=== PATIENT | male | born 1985 | race Two or more races ===

== ENCOUNTER 2017-01-12 16:37 | Emergency (ER) | payer MEDICAID, OTHER ==
--- NOTE | 2017-01-12 16:56 | ER Document Report ---
ED Medical Screen (RME) - General Stated Complaint: KNEE PAIN Notes: 31 yo male c/o bilat knee pain. chronic knee pain. ACL injury in . no recent injury. TRAVEL OUTSIDE OF THE [place] IN LAST 30 DAYS: No - Related Data Allergies/Adverse Reactions: No Known Allergies Allergy (Unverified 02/06/15 19:58) Past Medical History Musculoskeltal Medical History: Reports Hx Arthritis, Reports Hx Musculoskeletal Deformity, Reports Hx Musculoskeletal Trauma Past Surgical History: Reports: Hx Orthopedic Surgery - torn ACL repair - Immunizations Immunizations up to date: Yes Hx Diphtheria, Pertussis, Tetanus Vaccination: Yes
--- NOTE | 2017-01-12 21:04 | ER Document Report ---
ED Extremity Problem, Lower - General Chief Complaint: Knee Pain Stated Complaint: KNEE PAIN Mode of Arrival: Ambulatory Information source: Patient Notes: 31-year-old male presents to the emergency department complaining of bilateral knee pain. Patient reports history of chronic knee pain due to previous injuries multiple years ago and previous right knee surgery after ligament injury. Reports pain is worse after prolonged activity or standing. Denies swelling, redness, warmth, numbness, tingling, or color changes. TRAVEL OUTSIDE OF THE [place] IN LAST 30 DAYS: No - HPI Patient complains to provider of: Pain Location: Knee Onset/Duration: Intermittent Quality of pain: Achy Severity: Moderate Pain Level: 3 Recent injury: No Exacerbated by: Movement, Walking Relieved by: Ice, Rest - Related Data Allergies/Adverse Reactions: No Known Allergies Allergy (Verified 01/12/17 16:54) Past Medical History - General Information source: Patient - Social History Smoking Status: Current Every Day Smoker Chew tobacco use (# tins/day): No Frequency of alcohol use: Occasional Drug Abuse: None Lives with: Family Family History: Arthritis, CAD, CVA, DM, Hyperlipidemia, Hypertension Patient has suicidal ideation: No Patient has homicidal ideation: No Renal/ Medical History: Denies: Hx Peritoneal Dialysis Musculoskeltal Medical History: Reports Hx Arthritis, Reports Hx Musculoskeletal Deformity, Reports Hx Musculoskeletal Trauma Past Surgical History: Reports: Hx Orthopedic Surgery - torn ACL repair - Immunizations Immunizations up to date: Yes Hx Diphtheria, Pertussis, Tetanus Vaccination: Yes Review of Systems - Review of Systems Constitutional: No symptoms reported EENT: No symptoms reported Cardiovascular: No symptoms reported Respiratory: No symptoms reported Gastrointestinal: No symptoms reported Genitourinary: No symptoms reported Male Genitourinary: No symptoms reported Musculoskeletal: See HPI Skin: No symptoms reported Hematologic/Lymphatic: No symptoms reported Neurological/Psychological: No symptoms reported -: Yes All other systems reviewed and negative Physical Exam - Vital signs Vitals: Temp Pulse Resp BP Pulse Ox 97.8 F 89 18 128/76 H 96 01/12/17 16:48 01/12/17 16:48 01/12/17 16:48 01/12/17 16:48 01/12/17 16:48 - General General appearance: Appears well, Alert In distress: None - HEENT Head: Normocephalic, Atraumatic Eyes: Normal - Respiratory Respiratory status: No respiratory distress Chest status: Nontender Breath sounds: Normal Chest palpation: Normal - Cardiovascular Rhythm: Regular Pulses: Normal: Radial, Posterior tibial, Dorsalis pedis Normal capillary refill: Yes - Extremities General upper extremity: Normal inspection, Nontender, Normal color, Normal ROM , Normal strength, Normal temperature. No: Tender, Edema General lower extremity: Normal inspection, Nontender, Normal color, Normal ROM , Normal strength, Normal temperature, Normal weight bearing. No: Tender, Edema , Rigoberto's sign Knee: Normal, Other - Old well-healed midline anterior surgical scar to right knee. No swelling, erythema, or warmth. Motor and neurovascular function intact.. No: Tender, Deformity, Dislocation, Pain with ROM Course - Re-evaluation Re-evalutation: 01/12/17 21:51 Patient hemodynamically stable, in no distress. Physical exam unremarkable with no suggestion of acute injury, or emergent infectious, inflammatory, or vascular etiology for the pain. Pt appears stable for discharge and agrees with home care, follow-up with PCP and orthopedics, and ED return precautions. - Vital Signs Vital signs: Temp Pulse Resp BP Pulse Ox 98.4 F 86 20 110/59 L 98 01/12/17 21:28 01/12/17 21:28 01/12/17 21:28 01/12/17 21:28 01/12/17 21:28 Discharge - Discharge Clinical Impression: Chronic knee pain Qualifiers: Laterality: bilateral Qualified Code(s): M25.561 - Pain in right knee Condition: Stable Disposition: HOME, SELF-CARE Instructions: Knee Exercise Program ([facility]), Anti-Inflammatory Medication ([facility]), Ice Packs ([facility]), Chronic Pain Control ([facility]) Additional Instructions: Follow-up with your primary care provider and orthopedics as discussed. Return to the emergency department for any worsening symptoms or concerns. Prescriptions: Naproxen 500 mg PO BIDP PRN #10 tablet PRN Reason: Forms: Return to Work Referrals: CASSIE BENNETT MD [ACTIVE STAFF] - Follow up in 3-5 days
[2017-01-12 21:29] VITALS: BP 110/59
== END 2017-01-12 21:24 | disposition home or self-care (01) ==
LOC: ER 16:37
DX: G89.29 Other chronic pain (principal); M25.561 Pain in right knee; M25.562 Pain in left knee
CPT/HCPCS: 99283

== ENCOUNTER 2017-10-04 06:07 | Emergency (ER) | payer SELFPAY ==
[2017-10-04] MEDS ORDERED: ASPIRIN 81 MG TABLET, CHEWABLE PO ONE (06:30)
--- NOTE | 2017-10-04 06:52 | ER Document Report ---
ED Blood Pressure Problem - General Mode of Arrival: Ambulatory Information source: Patient TRAVEL OUTSIDE OF THE [place] IN LAST 30 DAYS: No <DAMION HAYES - Last Filed: 10/04/17 07:32> <GRECIA HEREDIA - Last Filed: 10/04/17 08:31> - General Chief Complaint: Blood Pressure Problem Stated Complaint: BLOOD PRESSURE PROBLEM Time Seen by Provider: 10/04/17 06:28 Notes: Patient is a 32 year old male that presents to the emergency department today with complaints of a "taste of blood in his mouth". Patient states that he feels like he has been "hanging upside down for too long". Patient states that he usually notices this sensation immediately after standing. 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 Patient states he has a headache but denies any chest pain. (DAMION HAYES) - Related Data Allergies/Adverse Reactions: No Known Allergies Allergy (Verified 01/12/17 16:54) Home Medications: Current Home Medications No Home Medications 10/04/17 [History] Past Medical History - General Information source: Patient - Social History Smoking Status: Current Some Day Smoker - "quit two days ago" Cigarette use (# per day): Yes Chew tobacco use (# tins/day): No Frequency of alcohol use: None Drug Abuse: None Lives with: Family Family History: Arthritis, CAD, CVA, DM, Hyperlipidemia, Hypertension Patient has suicidal ideation: No Patient has homicidal ideation: No Musculoskeltal Medical History: Reports Hx Arthritis, Reports Hx Musculoskeletal Deformity, Reports Hx Musculoskeletal Trauma Past Surgical History: Reports: Hx Orthopedic Surgery - torn ACL repair - Immunizations Immunizations up to date: Yes Hx Diphtheria, Pertussis, Tetanus Vaccination: Yes <DAMION HAYES - Last Filed: 10/04/17 07:32> Review of Systems - Review of Systems Constitutional: No symptoms reported EENT: No symptoms reported Cardiovascular: See HPI, Dizziness, Lightheaded. denies: Chest pain Respiratory: No symptoms reported Gastrointestinal: No symptoms reported Genitourinary: No symptoms reported Male Genitourinary: No symptoms reported Musculoskeletal: No symptoms reported Skin: No symptoms reported Hematologic/Lymphatic: No symptoms reported Neurological/Psychological: See HPI, Headaches -: Yes All other systems reviewed and negative <DAMION HAYES - Last Filed: 10/04/17 07:32> Physical Exam <DAMION HAYES - Last Filed: 10/04/17 07:32> - Vital signs Interpretation: Normal - General General appearance: Appears well, Alert - HEENT Head: Normocephalic, Atraumatic Eyes: Normal Pupils: PERRL - Respiratory Respiratory status: No respiratory distress Chest status: Nontender Breath sounds: Normal Chest palpation: Normal - Cardiovascular Rhythm: Regular Heart sounds: Normal auscultation Murmur: No - Abdominal Inspection: Normal Distension: No distension Bowel sounds: Normal Tenderness: Nontender Organomegaly: No organomegaly - Back Back: Normal, Nontender - Extremities General upper extremity: Normal inspection, Nontender, Normal color, Normal ROM , Normal temperature General lower extremity: Normal inspection, Nontender, Normal color, Normal ROM , Normal temperature, Normal weight bearing. No: Rigoberto's sign - Neurological Neuro grossly intact: Yes Cognition: Normal Orientation: AAOx4 [place] Coma Scale Eye Opening: Spontaneous [place] Coma Scale Verbal: Oriented [place] Coma Scale Motor: Obeys Commands Melissa Coma Scale Total: 15 Speech: Normal Motor strength normal: LUE, RUE, LLE, RLE Sensory: Normal - Psychological Associated symptoms: Normal affect, Normal mood - Skin Skin Temperature: Warm Skin Moisture: Dry Skin Color: Normal <GRECIA HEREDIA - Last Filed: 10/04/17 08:31> - Vital signs Vitals: Temp Pulse Resp BP Pulse Ox 98.2 F 92 20 147/85 H 97 10/04/17 06:10 10/04/17 06:10 10/04/17 06:10 10/04/17 06:10 10/04/17 06:10 - Notes Notes: Physical Exam: General: Alert, appears well. HEENT: Normocephalic. Atraumatic. PERRL. Extraocular movements intact. Oropharynx clear. Neck: Supple. Non-tender. Respiratory: No respiratory distress. Clear and equal breath sounds bilaterally. Cardiovascular: Regular rate and rhythm. Abdominal: Normal Inspection. Non-tender. No distension. Normal Bowel Sounds. Back: Non-tender. No deformity or step off. Extremities: Moves all four extremities. Upper extremities: Normal inspection. Normal ROM. Lower extremities: Normal inspection. No edema. Normal ROM. Neurological: Normal cognition. AAOx4. Normal speech. Psychological: Normal affect. Normal Mood. Skin: Warm. Dry. Normal color. (DAMION HAYES) Course - Laboratory Result Diagrams: 10/04/17 06:45 10/04/17 06:45 <DAMION HAYES - Last Filed: 10/04/17 07:32> - Laboratory Result Diagrams: 10/04/17 06:45 10/04/17 06:45 <GRECIA HEREDIA - Last Filed: 10/04/17 08:31> - Re-evaluation Re-evalutation: 10/04/17 08:28 Patient is a 32-year-old male who comes in complaining of head rashes. Patient states that when he stands up he feels like the blood rushes and he was moving heavy things and then felt the same way. Patient feels better after fluids. No acute finding on blood work. No acute findings on chest x-ray. Troponin is negative. No acute changes on EKG. Patient is to stay hydrated. Stable for discharge. Follow-up with PMD as needed. (GRECIA HEREDIA) - Vital Signs Vital signs: Temp Pulse Resp BP Pulse Ox 98.2 F 92 21 H 121/87 H 95 10/04/17 06:10 10/04/17 06:10 10/04/17 07:01 10/04/17 07:01 10/04/17 07:01 - Laboratory Laboratory results interpreted by me: 10/04/17 10/04/17 06:45 06:45 Eosinophils % 7.0 H Absolute Eosinophils 0.7 H ALT 80 H Alkaline Phosphatase 130 H Creatine Kinase 240 H Discharge <DAMION HAYES - Last Filed: 10/04/17 07:32> <GRECIA HEREDIA - Last Filed: 10/04/17 08:31> - Discharge Clinical Impression: Orthostatic dizziness Condition: Stable Disposition: HOME, SELF-CARE Instructions: Orthostatic Hypotension ([facility]), Dehydration ([facility]) Additional Instructions: Please make sure you are staying hydrated. Please follow-up with your doctor within the next week. Forms: Return to Work Scribe Attestation: 10/04/17 08:31 I personally performed the services described in the documentation, reviewed and edited the documentation which was dictated to the scribe in my presence, and it accurately records my words and actions. (GRECIA HEREDIA) Scribe Documentation - Scribe Written by Kourtney:: Kourtney Foley, 10/04/2017 0732 acting as scribe for :: Lyudmila <DAMION HAYES - Last Filed: 10/04/17 07:32>
[2017-10-04 06:54] LABS: ABSOLUTE BASOPHILS # (AUTO) 0.1 10^3/uL (0.0-0.2); ABSOLUTE EOSINOPHILS # (AUTO) 0.7 10^3/uL (0.0-0.6); ABSOLUTE LYMPHOCYTES (AUTO) 2.2 10^3/uL (0.5-4.7); ABSOLUTE MONOCYTES (AUTO) 0.6 10^3/uL (0.1-1.4); ABSOLUTE NEUT (AUTO) 5.9 10^3/uL (1.7-8.2); BASOPHILS % (AUTO) 0.5 % (0-2); HEMATOCRIT 42.8 % (37.9-51.0); HEMOGLOBIN 15.2 g/dL (13.5-17.0); HGB HCT DIFFERENCE 2.8; LYMPHOCYTES % (AUTO) 23.4 % (13-45); MEAN CORPUSCULAR HEMOGLOBIN 31.8 pg (27.0-33.4); MEAN CORPUSCULAR HGB CONC 35.5 g/dL (32.0-36.0); MEAN CORPUSCULAR VOLUME 90 fl (80-97); MONOCYTES % (AUTO) 6.8 % (3-13); RED BLOOD COUNT 4.77 10^6/uL (4.35-5.55); RED CELL DISTRIBUTION WIDTH 12.5 % (11.5-14.0); SEGMENTED NEUTROPHILS % (AUTO) 62.3 % (42-78); WHITE BLOOD COUNT 9.5 10^3/uL (4.0-10.5)
[2017-10-04] MEDS ORDERED: NORMAL SALINE 1000 ML 1,000 ML IV ONE (06:57)
--- NOTE | 2017-10-04 07:20 | RADIOLOGY REPORT (SQ) ---
EXAM DESCRIPTION: CHEST SINGLE VIEW CLINICAL HISTORY: CP COMPARISON: 02/06/2015 FINDINGS: Single frontal view of the chest. The cardiomediastinal silhouette has normal size and contour. No consolidation, pneumothorax, or pleural effusion. No displaced rib fractures identified. Leads overlie the chest. Upper abdominal soft tissues are unremarkable. IMPRESSION: 1. No acute pulmonary process identified.
[2017-10-04 07:23] LABS: ALANINE AMINOTRANSFERASE 80 U/L (21-72); ALBUMIN 4.2 g/dL (3.5-5.0); ALKALINE PHOSPHATASE 130 U/L (38-126); ANION GAP 11 (5-19); ASPARTATE AMINO TRANSFERASE 42 U/L (17-59); BILIRUBIN,DIRECT 0.4 mg/dL (0.0-0.4); BILIRUBIN,TOTAL 0.7 mg/dL (0.2-1.3); BLOOD UREA NITROGEN 12 mg/dL (7-20); CALCIUM 9.5 mg/dL (8.4-10.2); CARBON DIOXIDE 24 mmol/L (22-30); CHLORIDE 106 mmol/L (98-107); CREATINE KINASE 240 U/L (55-170); CREATININE RESULT 0.88 mg/dL (0.52-1.25); GLUCOSE 101 mg/dL (75-110); POTASSIUM 4.2 mmol/L (3.6-5.0); SODIUM 141.4 mmol/L (137-145); TOTAL PROTEIN 6.8 g/dL (6.3-8.2)
[2017-10-04 07:34] LABS: CREATINE KINASE MB 2.51 ng/mL (<4.55)
[2017-10-04 07:43] LABS: TROPONIN I < 0.012 ng/mL
[2017-10-04 09:07] VITALS: BP 119/76
--- NOTE | 2017-10-04 09:46 | EKG REPORT ---
SEVERITY:- NORMAL ECG - SINUS RHYTHM : Confirmed by: Ryanne Mahoney 04-Oct-2017 09:45:32
== END 2017-10-04 09:11 | disposition home or self-care (01) ==
LOC: ER 06:07
DX: R42 Dizziness and giddiness (principal); R43.8 Other disturbances of smell and taste; R51 Headache; Z87.891 Personal history of nicotine dependence
CPT/HCPCS: 93005; 99284; 96360; 36415; 82553; 82962; 82550; 85025; 80053; 84484; 71010; 93010; J7030

== ENCOUNTER 2020-02-17 20:36 | Emergency (ER) | payer BC, OTHER ==
[2020-02-17] MEDS ORDERED: ACETAMINOPHEN 325 MG TABLET PO ONE (21:13)
[2020-02-17] MEDS ORDERED: ACETAMINOPHEN 325 MG TABLET ONE (21:14)
[2020-02-18] MEDS ORDERED: LIDOCAINE 1%/EPINEPHRINE INJ 20 ML VIAL INJ ONE (00:52)
[2020-02-18] MEDS ORDERED: DIAZEPAM 5 MG TABLET PO ONE (00:52)
--- NOTE | 2020-02-18 00:54 | ER Document Report ---
ED Wound - General Chief Complaint: Laceration Stated Complaint: RIGHT LEG WOUND Time Seen by Provider: 02/18/20 00:24 Notes: Patient is a 34-year-old male that comes to the emergency department for chief complaint of laceration to the right inner ankle area. 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 He states that he cleaned t his thoroughly, trying to put liquid Band-Aid over it but it continued to bleed through this. He states he is up-to-date on his tetanus within 5 years. He denies any other injuries or any other complaints. He denies any daily medications, denies alcohol tonight. TRAVEL OUTSIDE OF THE [place] IN LAST 30 DAYS: No - Related Data Allergies/Adverse Reactions: No Known Allergies Allergy (Verified 01/12/17 16:54) Past Medical History - General Information source: Patient - Social History Smoking Status: Current Every Day Smoker Chew tobacco use (# tins/day): No Frequency of alcohol use: None Drug Abuse: None Lives with: Family Family History: Arthritis, CAD, CVA, DM, Hyperlipidemia, Hypertension Patient has suicidal ideation: No Patient has homicidal ideation: No Renal/ Medical History: Denies: Hx Peritoneal Dialysis Musculoskeletal Medical History: Reports Hx Arthritis, Reports Hx Musculoskeletal Deformity, Reports Hx Musculoskeletal Trauma Past Surgical History: Reports: Hx Orthopedic Surgery - torn ACL repair - Immunizations Immunizations up to date: Yes Hx Diphtheria, Pertussis, Tetanus Vaccination: Yes Review of Systems - Review of Systems Constitutional: No symptoms reported EENT: No symptoms reported Cardiovascular: No symptoms reported Respiratory: No symptoms reported Gastrointestinal: No symptoms reported Genitourinary: No symptoms reported Male Genitourinary: No symptoms reported Musculoskeletal: See HPI Skin: See HPI Hematologic/Lymphatic: No symptoms reported Neurological/Psychological: No symptoms reported Physical Exam - Vital signs Vitals: Temp Pulse Resp BP Pulse Ox 97.8 F 98 18 144/83 H 96 02/17/20 21:11 02/17/20 21:11 02/17/20 21:11 02/17/20 21:11 02/17/20 21:11 - Notes Notes: GENERAL: Alert, interacts well. No acute distress. HEAD: Normocephalic, atraumatic. EYES: Pupils equal, round, and reactive to light. Extraocular movements intact. ENT: Oral mucosa moist, tongue midline. Oropharynx unremarkable. Airway patent. LUNGS: Clear to auscultation bilaterally, no wheezes, rales, or rhonchi. No respiratory distress. HEART: Regular rate and rhythm. No murmur ABDOMEN: Soft, non-tender. Non-distended. EXTREMITIES: Right distal medial tibial area with a 4 cm linear partial- thickness laceration. This is easily explored, this is not down into the muscle, there is normal strength in the distal ankle and full range of motion, normal distal neurovascular exam, normal lower extremity exam otherwise. BACK: no cervical, thoracic, lumbar midline tenderness. No saddle anesthesia, normal distal neurovascular exam. NEUROLOGICAL: Alert and oriented x3. Normal speech. Cranial nerves II through XII grossly intact. PSYCH: Normal affect, normal mood. SKIN: Warm, dry, normal turgor. No rashes or lesions noted. Course - Re-evaluation Re-evalutation: Patient was extremely anxious about the procedure, I gave him Valium after discussion, after this patient was calm and cooperative. Patient was very appreciative for this. X-rays negative without fracture or foreign body. When I cleaned the wound the glue the patient had placed easily flaked off. The area was irrigated thoroughly, sutured, dressed. Discussed wound care, follow-up, return cautions. Patient states appreciation and agreement. - Vital Signs Vital signs: Temp Pulse Resp BP Pulse Ox 97.3 F 59 L 18 122/92 H 95 02/18/20 02:59 02/18/20 02:59 02/18/20 02:59 02/18/20 02:59 02/18/20 02:59 Procedures - Laceration/Wound Repair Right medial ankle Wound length (cm): 4 Wound's Depth, Shape: Linear Laceration pre-procedure: Sterile PPE donned, Sterile drapes applied, Shur-Clens applied Anesthetic type: 1% Lidocaine w/epi Volume Anesthetic (mLs): 6 Wound explored: Clean, No foreign body removed Irrigated w/ Saline (mLs): 70 Wound Repaired With: Sutures Suture Size/Type: 4:0, Ethilon Number of Sutures: 8 Layer Closure?: No Post-procedure wound care: Sterile dressing applied Post-procedure NV exam normal: Yes Complications: No Discharge - Discharge Clinical Impression: Laceration of ankle Qualifiers: Encounter type: initial encounter Laterality: right Qualified Code(s): S91.011A - Laceration without foreign body, right ankle, initial encounter Condition: Stable Disposition: HOME, SELF-CARE Additional Instructions: Your x-ray does not show any concerning findings. The sutures need to be removed in approximately 7 days. This can be performed at almost any medical facility. Keep the wound clean, clean with soap and water, dab dry, keep a protective dressing over the area, keep a thin film of topical antibiotic over the area. Avoid soaking or scrubbing the area. You can take Tylenol and ibuprofen together every 6 hours if needed for pain. I recommend elevating your leg for the first 2 days as much as possible. Return for any signs of infection including developing pain, redness, swelling, discolored drainage, or any other concerning symptoms. Forms: Return to Work
--- NOTE | 2020-02-18 01:39 | RADIOLOGY REPORT (SQ) ---
CLINICAL INDICATION: wound, swelling. . TECHNIQUE: 2 view(s) were obtained of the right ankle. COMPARISON: None. FINDINGS: No acute displaced fracture is identified of the ankle. Alignment appears anatomic. Joint spaces are within normal limits for age. Soft tissue swelling. IMPRESSION: No evidence of acute displaced fracture of the ankle.
[2020-02-18 03:08] VITALS: BP 122/92
== END 2020-02-18 03:08 | disposition home or self-care (01) ==
LOC: ER 20:36
DX: S91.011A Laceration without foreign body, right ankle, initial encounter (principal); W20.8XXA Other cause of strike by thrown, projected or falling object, initial encounter; Y93.89 Activity, other specified; F41.9 Anxiety disorder, unspecified; F17.200 Nicotine dependence, unspecified, uncomplicated
CPT/HCPCS: 99283; 73600; 12002; J3490